=== PATIENT | male | born 1965 | race Two or more races ===

== ENCOUNTER 2022-04-13 19:11 | Inpatient (IN) | payer OTHER ==
[~2022-04-13] VITALS: Ht 177.8 cm; Wt 143.8 kg
--- NOTE | 2022-04-13 19:14 | NUR ---
SE LLAMA A PACIENTE EN [place] Y NO CONTESTA
--- NOTE | 2022-04-13 19:21 | NUR ---
SE RECIBE MASCULINO ALERTA Y ORIENTADO X3 EN AMBULANCIA ACOMPANADO POR FAMILIAR QUIEN REFIERE EKATERINA SUFRIDO MARTY CAIDA HACE APROX 3 PIERRE. PTE REFIERE DOLOR DE JONNA.
--- NOTE | 2022-04-13 20:11 | NUR ---
MASCULINO ALERTA Y ORIENTADO X3 EVALUADO POR DR DOAN QUIEN [place] MED[place]. SE EDUCA A PTE Y REFIERE ENTENDER. SE COLECTAN MUESTRAS DE [place] BAJO MEDIDAS ASEPTICAS Y SE CANALIZA. PENDIENTE REALIZAR CT-SCAN.
[2022-05-05] MEDS ORDERED: KEPPRA500 MG PO (10:53)
[2022-05-05] MEDS ORDERED: FLUCONAZOLE200 MG PO (10:53)
[2022-05-05] MEDS ORDERED: AMLODIPINE BESYL5 MG PO (10:53)
[2022-05-05] MEDS ORDERED: LINEZOLID600 MG PO (10:53)
== END 2022-05-05 16:25 | disposition home or self-care (01) | DRG 177 ==
LOC: ER 19:11 → MEDJ 23:03
PROVIDERS: Surgery; ADMIT Internal Medicine; ATTEND Internal Medicine
PROC: B246ZZZ Ultrasonography of Right and Left Heart (ICD-10-PCS; 2022-04-14)
PROC: B54DZZZ Ultrasonography of Bilateral Lower Extremity Veins (ICD-10-PCS; 2022-04-14)
PROC: B343ZZ3 Ultrasonography of Right Common Carotid Artery, Intravascular (ICD-10-PCS; 2022-04-14)
PROC: B44HZZZ Ultrasonography of Bilateral Lower Extremity Arteries (ICD-10-PCS; 2022-04-14)
PROC: XW033E5 Introduction of Remdesivir Anti-infective into Peripheral Vein, Percutaneous Approach, New Technology Group 5 (ICD-10-PCS; 2022-04-15)
PROC: 3E0F7GC Introduction of Other Therapeutic Substance into Respiratory Tract, Via Natural or Artificial Opening (ICD-10-PCS; 2022-04-19)
PROC: 0DH63UZ Insertion of Feeding Device into Stomach, Percutaneous Approach (ICD-10-PCS; principal; 2022-04-27 16:15)
DX: U07.1 COVID-19 (principal); J12.82 Pneumonia due to coronavirus disease 2019; Z68.42 Body mass index [BMI] 45.0-49.9, adult; J45.901 Unspecified asthma with (acute) exacerbation; G40.89 Other seizures; R06.02 Shortness of breath; R13.19 Other dysphagia; I10 Essential (primary) hypertension; Z88.0 Allergy status to penicillin; I73.9 Peripheral vascular disease, unspecified; S00.93XA Contusion of unspecified part of head, initial encounter; W06.XXXA Fall from bed, initial encounter; E87.6 Hypokalemia; J20.9 Acute bronchitis, unspecified; E66.01 Morbid (severe) obesity due to excess calories; G47.33 Obstructive sleep apnea (adult) (pediatric); M24.69 Ankylosis, other specified joint; Z66 Do not resuscitate; Z74.01 Bed confinement status; D72.828 Other elevated white blood cell count